=== PATIENT | female | born 1970 | race Native Hawaiian/Other Pacific Islander ===

== ENCOUNTER 2018-08-16 20:01 | Emergency (ER) | payer BC, MEDICAID ==
[2018-08-16] MEDS ORDERED: Sodium Chloride 0.9% 1,000 ML IV STA (20:32)
[2018-08-16 21:24] LABS: BASO % 0.4 % (0.0-2.0); EOS # 0.1 K/uL (0.0-0.7); HEMOGLOBIN 14.5 g/dL (12.0-16.0); LYMPH # 4.3 K/uL (1.0-4.3); LYMPH % 35.8 % (20.0-40.0); MEAN CELL VOLUME 92.2 fl (81.0-99.0); MEAN CORPUSCULAR HEMOGLOBIN 29.8 pg (27.0-31.0); MEAN CORPUSCULAR HGB CONC 32.4 g/dL (33.0-37.0); MEAN PLATELET VOLUME 9.2 fl (7.2-11.7); MONO # 0.9 K/uL (0.0-0.8); MONO % 7.5 % (0.0-10.0); NEUT # 6.7 K/uL (1.8-7.0); NEUT % 55.3 % (50.0-75.0); RBC 4.86 Mil/uL (3.80-5.20); RED CELL DISTRIBUTION WIDTH 13.1 % (11.5-14.5); WHITE BLOOD COUNT 12.1 K/uL (4.8-10.8)
--- NOTE | 2018-08-16 21:27 | ED PDOC ---
HPI: Psych/Substance Abuse Time Seen by Provider: 08/16/18 20:12 Chief Complaint (Nursing): Alcohol Ingestion Chief Complaint (Provider): alcohol intoxication History/Exam Limitations: intoxication Onset/Duration Of Symptoms: Unknown Additional Complaint(s): Pt found outside in rain, intoxicated, trying to hold herself up with a tree Reports she has been drinking cocktails with friends tonight. Denies drugs History may be unreliable due to intoxication Pt very tearful in ER, poor historian. Will not answer all questions of history. PMD unk Past Medical History Reviewed: Historical Data, Nursing Documentation, Vital Signs Vital Signs: Last Vital Signs Temp 97.3 F L 08/16/18 20:02 Pulse 128 H 08/16/18 20:02 Resp 18 08/16/18 20:02 BP 128/47 L 08/16/18 20:02 Pulse Ox 97 08/16/18 20:02 - Medical History PMH: No Chronic Diseases - Family History Family History: States: Unknown Family Hx - Social History Alcohol: Social - Allergies Allergies/Adverse Reactions: Allergies Allergy/AdvReac Type Severity Reaction Status Date / Time No Known Allergies Allergy Verified 08/16/18 20:02 Review of Systems Review Of Systems: ROS cannot be obtained secondary to pt's inabilty to answer questions. Physical Exam - Reviewed Nursing Documentation Reviewed: Yes Vital Signs Reviewed: Yes - Physical Exam Appears: Positive for: In Acute Distress Head Exam: Positive for: ATRAUMATIC, NORMOCEPHALIC Skin: Positive for: Warm, Dry Eye Exam: Positive for: EOMI, PERRL, Conjunctival injection ENT: Positive for: Pharynx Is (clear) Neck: Positive for: Painless ROM, Supple Cardiovascular/Chest: Positive for: Regular Rate, Rhythm. Negative for: Murmur Respiratory: Positive for: Normal Breath Sounds. Negative for: Respiratory Distress Gastrointestinal/Abdominal: Positive for: Soft. Negative for: Tenderness Back: Positive for: Normal Inspection. Negative for: Decreased ROM Extremity: Positive for: Normal ROM. Negative for: Deformity Lymphatic: Negative for: Adenopathy Neurologic/Psych: Positive for: Gait (unsteady), Other (slurred speech). Negative for: Oriented, Motor/Sensory Deficits - Laboratory Results Result Diagrams: 08/16/18 21:21 08/16/18 21:21 - ECG O2 Sat by Pulse Oximetry: 97 Disposition - Clinical Impression Clinical Impression: Alcohol abuse - Disposition Disposition: Transfer of Care Disposition Time: 00:00 Condition: STABLE Patient Signed Over To: Juan Mas Handoff Comments: Pending sobriety
[2018-08-16 21:40] LABS: ALB/GLOB RATIO 1.4 (1.0-2.1); ALBUMIN 5.2 g/dL (3.5-5.0); ALT/SGPT 33 U/L (9-52); AST/SGOT 60 U/L (14-36); BLOOD UREA NITROGEN 19 mg/dl (7-17); CALCIUM 9.8 mg/dL (8.4-10.2); GFR NON-AFRICAN AMERICAN > 60
[2018-08-17 06:37] VITALS: BP 119/77; PULSE 87; RESP 19; TEMP 97.7
--- NOTE | 2018-08-17 19:25 | ED PDOC ---
- Laboratory Results Result Diagrams: 08/16/18 21:21 08/16/18 21:21 - ECG O2 Sat by Pulse Oximetry: 99 Pulse Ox Interpretation: Normal Medical Decision Making Medical Decision Makin Patient endorsed to me pending sobriety 0200 Patient is asleep. No changes 0400 Asleep, resting comfortably. Vitals stable. 0700 Patient is awake, alert, oriented. Steady gait, stable for discharge. Disposition - Clinical Impression Clinical Impression: Alcohol abuse - POA Present On Arrival: None - Disposition Referrals: Alcoholics Anonymous [Outside] Disposition: Routine/Home Disposition Time: 07:00 Condition: STABLE Instructions: Alcohol Abuse and Alcoholism (DC) Forms: [employer] ([place]rian)
[2018-08-17 23:30] VITALS: O2SAT 97
== END 2018-08-17 07:12 | disposition home or self-care (01) ==
LOC: H.ER 20:01
DX: F10.129 Alcohol abuse with intoxication, unspecified (principal)
CPT/HCPCS: 80053; 82948; 85025; 96361; 96374; 96375; 99285; G0480; J2060; J2405; J7030